=== PATIENT | female | born 1995 | race Caucasian/White ===

== ENCOUNTER → 2018-01-07 | Outpatient (CLI) | payer OTHER ==
[~2018-01-07] MED LIST: HYDROXYZINE HCL25 M1 PO; LEXAPRO20 MG PO; PREDNISONE 20 M20 MG PO; SPRINTEC1 EACH PO
== END ==
LOC: ULTRA 10:20
DX: N63.11 Unspecified lump in the right breast, upper outer quadrant (principal)